=== PATIENT | female | born 1995 | race Caucasian/White ===

== ENCOUNTER → 2020-10-18 | Outpatient (REF) | payer SELFPAY ==
[2020-10-18 18:02] LABS: HEMATOCRIT 35.3 % (36.0-52.0); HEMOGLOBIN 11.8 g/dl (12.0-18.0); MEAN CORPUSCULAR HEMOGLOBIN 29.8 pg; MEAN CORPUSCULAR HGB CONC 33.4 g/dl (32.0-36.5); MEAN CORPUSCULAR VOLUME 89.1 fl (80.0-96.0); PLATELET COUNT, AUTOMATED 328 10^3/uL (150-450); RED BLOOD COUNT 3.96 10^6/uL (4.10-5.30)
[2020-10-18 19:17] LABS: HEPATITIS C VIRUS ABY INDEX < 0.0 INDEX (<0.8); HIV 1&2 SCREEN CENTAUR NEGATIVE (NEGATIVE)
[2020-10-18 20:32] LABS: CHLAMYDIA DNA AMPLIFICATION NEGATIVE; GC DNA AMPLIFICATION NEGATIVE
== END ==
LOC: M PLALAB 14:09 → EDSEX 14:09
PROVIDERS: ATTEND Obstetrics & Gynecology
DX: Z34.02 Encounter for supervision of normal first pregnancy, second trimester (principal); Z3A.00 Weeks of gestation of pregnancy not specified

== ENCOUNTER → 2020-11-21 | Outpatient (CLI) | payer MEDICAID ==
--- NOTE | 2020-11-21 17:19 | REP ---
INDICATION: F/U ANATOMY. COMPARISON: October. TECHNIQUE: Real-time sonographic evaluation of the gravid uterus performed. FINDINGS: Estimated gestational age is20 weeks 2 days, EDC 04/08/2021. Today's measurements indicate appropriate growth. Presentation: Transverse head maternal right Placenta posterior, grade 1, without evidence of placenta previa. heart rate is recorded at 163 beats per minute. Amniotic fluid is subjectively normal. Closed cervical length is measured at 3.3 cm. There is a left adnexal cyst measuring 5.5 x 2.4 x 7.2 cm. Biometry chart: BPD: 46 mm, 19 weeks 6 days, 39th percentile. HC: 175 mm, 20 weeks 0 days, 41st percentile AC: 150 mm, 20 weeks 1 days, 48th percentile Femur length: 33 mm, 20 weeks 3 days, 52nd percentile HC to AC ratio: 1.17, normal range 1.06-1.24. Estimated weight: 342g, 43rd percentile. anatomy: Cranium: Grossly normal Lateral Ventricles/Choroid Plexus: Grossly normal Posterior Fossa/Cerebellum: Grossly normal Nose/lips/profile: Grossly normal Four chamber heart: Not well seen due to position Right ventricular outflow tract: Not well seen due to position Left ventricular outflow tract: Not well seen due to position Left-sided stomach: Grossly normal Kidneys: Grossly normal Bladder: Grossly normal Cord Insertion: Grossly normal 3 vessel cord: Grossly normal Spine: Grossly normal IMPRESSION: Viable single intrauterine gestation as above. <Electronically signed by Andrew Harris > 11/21/20 [id number]
== END ==
LOC: M WHC 13:59
PROVIDERS: ATTEND Advanced Practice Midwife
DX: Z36.89 Encounter for other specified antenatal screening (principal); Z3A.20 20 weeks gestation of pregnancy